=== PATIENT | male | born 2000 | race Caucasian/White ===

== ENCOUNTER 2025-07-31 23:10 | Emergency (ER) | payer MEDICAID ==
[~2025-07-31] VITALS: Ht 182.9 cm; Wt 151.0 kg
[2025-07-31 23:12] VITALS: O2SAT 100
[2025-07-31 23:26] VITALS: TEMP 37.1
[2025-07-31 23:38] LABS: BASOPHILS % 0.7 % (0.0-2.0); EOSINOPHILS % 1.6 % (0.0-5.0); HEMATOCRIT. 45.3 % (42.0-52.0); HEMOGLOBIN. 15.1 g/dL (14.0-18.0); LYMPHOCYTES % 40.0 % (20.0-50.0); MEAN PLATELET VOLUME 9.5 fl (7.4-10.4); MONOCYTES % 9.9 % (2.0-8.0); NEUTROPHILS % 47.8 % (40.0-76.0); PLATELET 262 x1000/uL (130-400); RED BLOOD CELL COUNT 5.35 mill/uL (4.7-6.1); RED CELL DISTRIBUTION WIDTH 13.8 % (11.6-14.6)
[2025-07-31 23:49] LABS: CREATININE 1.0 mg/dL (0.6-1.3)
[2025-07-31 23:50] LABS: PROTEIN TOTAL 8.1 g/dL (6.0-8.3); UREA NITROGEN BLOOD 11 mg/dL (9-23)
[2025-07-31 23:51] LABS: TROPONIN I HIGH SENSITIVITY < 4 ng/L (3.0-53)
[2025-07-31 23:52] LABS: ASPARTATE AMINOTRANSFERASE 18 IU/L (<34); BILIRUBIN DIRECT 0.2 mg/dL (<=3.0); BILIRUBIN TOTAL 0.6 mg/dL (0.1-1.0)
[2025-07-31 23:53] LABS: INR 1.0
[2025-08-01] MEDS ORDERED: AMOX-494 MT (00:27)
[2025-08-01] MEDS ORDERED: LIDO700A30 TP (00:28)
[2025-08-01] MEDS ORDERED: POTA-354 MT (00:40)
[2025-08-01 00:47] VITALS: BP 138/93; PULSE 79; RESP 11; O2SAT 100
[2025-08-01] MEDS ORDERED: IOHEXOL-350 100 ML BOTTLE ONE (07:00)
== END 2025-08-01 00:54 | disposition home or self-care (01) ==
LOC: ER 23:10
DX: J18.9 Pneumonia, unspecified organism (principal); R09.02 Hypoxemia; E87.6 Hypokalemia; Z79.899 Other long term (current) drug therapy
CPT/HCPCS: 99285; 71275; 71045; 80076; 80048; 85025; 85610; 85730; 84484; 36415; 93005; Q9967